=== PATIENT | male | born 1970 | race Caucasian/White ===

== ENCOUNTER 2017-04-29 14:26 | Emergency (ER) | payer SELFPAY ==
[2017-04-29 14:40] VITALS: BP 111/71; PULSE 75; RESP 16; TEMP 98.1; O2SAT 96
--- NOTE | 2017-04-29 16:13 | EDPHY ---
ED Progress Note Narrative: The patient presents to the emergency department initially requesting evaluation for decreased smell and abnormal taste for several months. Shortly after obtaining a history on the patient he decided that he did not want to obtain additional care in the emergency department. Patient was concerned secondary to the fact that he is uninsured. I did inform the patient that it would be reasonable to undergo workup and consider MRI scanning for evaluation of his symptoms. Patient would like to decline this study or any further evaluation secondary to cost concerns. The patient is able to articulate the risks and benefits of declining additional workup. The patient has been informed that he can return to the emergency department at any time should he reconsider his decision not to have lab testing or neuro imaging. My limited examination demonstrated motor or sensory deficits. I could not complete a detailed cranial nerve examination.
== END 2017-04-29 16:16 | disposition left against medical advice (07) ==
DX: Z53.21 Procedure and treatment not carried out due to patient leaving prior to being seen by health care provider (principal)

== ENCOUNTER 2017-11-30 17:53 | Emergency (ER) | payer SELFPAY ==
[2017-11-30 18:07] VITALS: BP 145/94
--- NOTE | 2017-11-30 18:15 | EDPHY ---
ED Progress Note Narrative: This patient left without being seen.
== END 2017-11-30 18:05 | disposition left against medical advice (07) ==
LOC: CED 17:53
DX: Z53.21 Procedure and treatment not carried out due to patient leaving prior to being seen by health care provider (principal)

== ENCOUNTER 2017-11-30 19:37 | Emergency (ER) | payer SELFPAY ==
[2017-11-30 19:46] VITALS: BP 123/81; PULSE 82; RESP 16; TEMP 97.7; O2SAT 97
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
== END 2017-11-30 20:44 | disposition home or self-care (01) ==
DX: R43.0 Anosmia (principal); F17.200 Nicotine dependence, unspecified, uncomplicated